=== PATIENT | female | born 1995 | race American Indian/Alaskan Native ===

== ENCOUNTER 2019-09-24 13:08 | Outpatient (CLI) | payer MEDICAID ==
[2019-09-24] MEDS ORDERED: LACTATED RINGERS 500 ML IV ONE (14:07)
[2019-09-24 14:08] VITALS: BP 99/59
[2019-09-24 15:17] LABS: Bilirubin,Urine NEG (Negative); Blood,Urine NEG (Negative); Color,Urine Yellow (Yellow); Mucus,Urine 1+ /HPF; Protein,Urine <15 mg/dL mg/dL (Negative); Urobilinogen,Urine < 2.0 mg/dL (<2.0)
--- NOTE | 2019-09-24 17:57 | Ultrasound Report ---
ULTRASOUND BIOPHYSICAL PROFILE INDICATION: Placenta placement and R/o abruption and SHIMON. COMPARISON: None available. FINDINGS: breathing movement = 2 Gross body movement = 2 tone = 2 Qualitative amniotic fluid volume = 2 Total biophysical score = 8/8 Amniotic fluid index is 9.9 cm, within normal limits. Presentation is Cephalic. heart rate is 162 beats per minute. No placental abnormalities are identified. Anterior placenta is noted. This is grade 2. IMPRESSION: biophysical profile = 8/8. Amniotic fluid index is 9.9 cm, within normal limits. There is a grade 2 anterior placenta. Signer Name: Jesus Lozada MD Signed: 09/24/2019 5:53 PM Workstation Name: [id number]
== END 2019-09-24 18:38 | disposition home or self-care (01) ==
LOC: TRG 13:08 → APU 13:08 → TRG 18:38
PROVIDERS: ATTEND Obstetrics & Gynecology
DX: O46.8X2 Other antepartum hemorrhage, second trimester (principal); Z3A.26 26 weeks gestation of pregnancy
CPT/HCPCS: 59025; 76815; 76819; 81001

== ENCOUNTER 2019-10-03 16:50 | Inpatient (IN) | payer OTHER, MEDICAID ==
[2019-10-03] MEDS ORDERED: LACTATED RINGERS 1,000 ML ONE (17:38)
[2019-10-03] MEDS ORDERED: AZITHROMYCIN 250 MG TAB PO ONE (18:03)
[2019-10-03] MEDS ORDERED: MAGNESIUM SULFATE 4 GM/100 ML BAG IV ONE (18:14)
[2019-10-03] MEDS: BETAMET ACET/BETAMET NA PH 6 MG/ML INJ 5 ML MDV IM SCH (18:39)
[2019-10-03] MEDS ORDERED: AMPICILLIN/NS 2 GM/100 ML 2 GM/100 ML BAG IV ONE (18:51)
[2019-10-03] MEDS ORDERED: AMPICILLIN 2 GM in SODIUM CHLORIDE 0.9% 50 ML IV SCH (19:00)
[2019-10-03] MEDS: MAGNESIUM SULFATE 40GM/1000ML 40 GM/1,000 ML BAG IV SCH (19:00)
[2019-10-03] MEDS ORDERED: AMPICILLIN 2 GM in SODIUM CHLORIDE 0.9% 100 ML IV SCH (19:00)
[2019-10-03 19:08] LABS: Hematocrit 35.1 % (30.3-42.9); Hemoglobin 11.5 gm/dl (10.1-14.3); Mean Corpuscular HGB Conc 33 % (30-34); Mean Corpuscular Volume 89 fl (79-97); Platelet Count 233 K/mm3 (140-440); Red Blood Count 3.93 M/mm3 (3.65-5.03); Red Cell Distribution Width 13.3 % (13.2-15.2)
[2019-10-03] MEDS ORDERED: ZOLPIDEM 5 MG TAB PO PRN (20:17)
[2019-10-03] MEDS ORDERED: ONDANSETRON 4 MG/2 ML INJ IV PRN (20:17)
[2019-10-03] MEDS ORDERED: BUTORPHANOL 2 MG/1 ML INJ IV PRN (21:17)
[2019-10-03] MEDS: valACYclovir 500 MG TAB PO SCH (21:29)
[2019-10-03] MEDS ORDERED: CALCIUM GLUCONATE 1,000 MG in SODIUM CHLORIDE 0.9% 100 ML IV ONE (21:41)
[2019-10-03] MEDS: LACTATED RINGERS 1,000 ML IV SCH (22:05)
[2019-10-03] MEDS: AMPICILLIN/NS 2 GM/100 ML 2 GM/100 ML BAG IV SCH (23:04)
[2019-10-04] MEDS: BUTORPHANOL 2 MG/1 ML INJ IV PRN ×4 (00:53→21:47)
[2019-10-04] MEDS: AMPICILLIN/NS 2 GM/100 ML 2 GM/100 ML BAG IV SCH ×4 (01:18→19:52)
[2019-10-04] MEDS ORDERED: MINERAL OIL 30 ML ORAL LIQD ONE (06:09)
[2019-10-04] MEDS ORDERED: OXYTOCIN 20 UNIT/1000ML DRIP 20,000 MILLIUNITS/1,000 ML BAG IV ONE (06:09)
[2019-10-04] MEDS ORDERED: LIDOCAINE (2%) 20 MG/1 ML VIAL 20 ML MDV INFILTRATI ONE (06:09)
[2019-10-04 07:10] LABS: Amphetamine Screen,Urine PRESUMPTIVE NEGATIVE; Benzodiazepines Screen,Urine PRESUMPTIVE NEGATIVE; Cannabinoid Screen,Urine PRESUMPTIVE NEGATIVE; Cocaine Screen,Urine PRESUMPTIVE NEGATIVE; Methadone Screen,Urine PRESUMPTIVE NEGATIVE; Opiate Screen,Urine PRESUMPTIVE NEGATIVE
[2019-10-04] MEDS: valACYclovir 500 MG TAB PO SCH ×2 (10:18→21:45)
[2019-10-04] MEDS: LACTATED RINGERS 1,000 ML IV SCH (15:00)
[2019-10-04] MEDS: MAGNESIUM SULFATE 40GM/1000ML 40 GM/1,000 ML BAG IV SCH (15:01)
[2019-10-04] MEDS ORDERED: NIFEdipine*For Tocolysis only* 10 MG CAPSULE PO PRN (18:33)
[2019-10-04] MEDS: BETAMET ACET/BETAMET NA PH 6 MG/ML INJ 5 ML MDV IM SCH (18:40)
[2019-10-04] MEDS ORDERED: TERBUTALINE 1 MG/1 ML INJ SUB-Q ONE (22:44)
[2019-10-04] MEDS ORDERED: TERBUTALINE 1 MG/1 ML INJ ONE (22:48)
[2019-10-05] MEDS: BUTORPHANOL 2 MG/1 ML INJ IV PRN ×2 (00:58→01:35)
[2019-10-05] MEDS: AMPICILLIN/NS 2 GM/100 ML 2 GM/100 ML BAG IV SCH ×3 (01:36→15:33)
[2019-10-05] MEDS ORDERED: ePHEDrine SULFATE 50 MG/1 ML INJ ONE (04:03)
[2019-10-05] MEDS ORDERED: DEXMEDETOMIDINE 200 MCG/2 ML VIAL IV ONE (04:14)
[2019-10-05] MEDS ORDERED: ePHEDrine SULFATE 50 MG/1 ML INJ IV PRN (04:15)
[2019-10-05] MEDS ORDERED: NALOXONE 2 MG/2 ML INJ IV PRN (04:15)
[2019-10-05] MEDS: fentaNYL-BUPIV 2 MCG/ML-0.125% 200 MCG/100 ML BAG EPIDURAL SCH ×2 (04:57→12:33)
[2019-10-05] MEDS: LACTATED RINGERS 1,000 ML IV SCH ×2 (04:59→07:48)
[2019-10-05] MEDS: valACYclovir 500 MG TAB PO SCH (10:42)
[2019-10-05] MEDS ORDERED: ACETAMINOPHEN 325 MG TAB PO PRN (18:51)
[2019-10-05] MEDS ORDERED: WITCH HAZEL/ GLYCERIN PAD TP PRN (18:51)
[2019-10-05] MEDS ORDERED: diphenhydrAMINE 25 MG CAP PO PRN (18:51)
[2019-10-05] MEDS ORDERED: OXYTOCIN 20 UNIT/1000ML DRIP 20,000 MILLIUNITS/1,000 ML BAG IV ONE (19:58)
[2019-10-05] MEDS: FERROUS SULFATE 325 MG TAB PO SCH (22:13)
[2019-10-05] MEDS: DOCUSATE SODIUM 100 MG CAP PO SCH (22:13)
[2019-10-05] MEDS: IBUPROFEN 600 MG TAB PO SCH (22:14)
[2019-10-06] MEDS: IBUPROFEN 600 MG TAB PO SCH ×4 (05:31→17:46)
[2019-10-06 07:50] LABS: Hematocrit 21.9 % (30.3-42.9); Hemoglobin 7.3 gm/dl (10.1-14.3)
[2019-10-06] MEDS ORDERED: IRON DEXTRAN COMPLEX 100 MG/2 ML INJ IM NR (09:52)
[2019-10-06] MEDS: FERROUS SULFATE 325 MG TAB PO SCH ×2 (11:27→22:21)
[2019-10-06] MEDS: DOCUSATE SODIUM 100 MG CAP PO SCH ×2 (11:28→22:21)
[2019-10-07 09:16] VITALS: BP 102/66
[2019-10-07] MEDS: DOCUSATE SODIUM 100 MG CAP PO SCH (09:34)
[2019-10-07] MEDS: FERROUS SULFATE 325 MG TAB PO SCH (09:35)
== END 2019-10-07 11:15 | disposition home or self-care (01) | DRG 805 ==
LOC: TRG 16:50 → LD 16:52 → TRG 10-04 16:33 → LD 10-04 16:37 → OB 10-05 21:03
PROVIDERS: ADMIT Obstetrics & Gynecology; ATTEND Obstetrics & Gynecology
PROC: 10E0XZZ Delivery of Products of Conception, External Approach (ICD-10-PCS; principal; 2019-10-05)
PROC: 3E0R3BZ Introduction of Anesthetic Agent into Spinal Canal, Percutaneous Approach (ICD-10-PCS; 2019-10-05)
PROC: 00HU33Z Insertion of Infusion Device into Spinal Canal, Percutaneous Approach (ICD-10-PCS; 2019-10-05)
DX: O42.113 Preterm premature rupture of membranes, onset of labor more than 24 hours following rupture, third trimester (principal); O60.14X0 Preterm labor third trimester with preterm delivery third trimester, not applicable or unspecified; Z37.0 Single live birth; O98.52 Other viral diseases complicating childbirth; O69.1XX0 Labor and delivery complicated by cord around neck, with compression, not applicable or unspecified; O99.02 Anemia complicating childbirth; B00.9 Herpesviral infection, unspecified; Z3A.29 29 weeks gestation of pregnancy
CPT/HCPCS: 36415; 76816; 76819; 80307; 83735; 85014; 85018; 85027; 86850; 86900; 86901; 88307; G0378; J0290; J0595; J0610; J0702; J1750; J2405; J2590; J3105; J3475; J3490; J7120